=== PATIENT | female | born 1995 | race Caucasian/White ===

== ENCOUNTER 2023-10-13 07:21 | Emergency (ER) | payer BC, SELFPAY ==
--- OUTSIDE RECORDS SUMMARY | 2023-10-13 07:25 | XMS REPORT | Continuity of Care Document ---
Author Name Unknown Address [address] [place] [address] [facility] thconnect Address 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 Name Role Phone PCP, PATIENT DOES NOT HAVE A Primary Care Physic mara Unavailable [place] Patito SHEFFIELD Attending Clinician [phone] DEMARCUSPATITO REYES Attending Clinician Unavailab le Doctor Unassigned, Sims Attending Clinician U Gloria Ni MD Attending Clinician [phone] GLORIA RODRIGUEZ Attending Clinician Unavailable Mariaelena Alves MD Attending Clinician [phone] MARIAELENA ALVES Attending Clinician Unavailable JESSICA MCDANIELS Attending Clinician Unavailable Payers Payer Name Policy Type Policy Number Effective Date Expirati on Date Source Problems Condition Name Condition Details Condition Category Status Onset Date Resolution Date Last Treatment Date Treating Clinician Comments Source Well woman exam with routine gynecologi saud exam Well woman exam with routine gynecologi saud exam Disease Active 08-31 00:00: 00 [facility] Encounter for female control Encounter for female control Disease Active 08-31 00:00: 00 [facility] No known active problems No known active problems Disease [facility] Allergies, Adverse Reactions, Alerts Allergy Name Allergy Type Status Severity Reaction(s) Onset Date Inactive Date Treating Clinician Comments Source Venom-Ho khris Bee Drug Allergy Active Swelling 2015-04 0-04 00:00: 00 [facility] VENOM-HO KHRIS BEE DRUG INGREDI Active High Swelling 2015-04 004 00:00: 00 [facility] NO KNOWN ALLERGIE S Drug Class Active [facility] Social History Social Habit Start Date Stop Date Quantity Comments Source History SDOH Alcohol Frequency [facility] History SDOH Alcohol Std Drinks [facility] History SDOH Alcohol Binge [facility] Gender identity [facility] Alcoholic beverage intake 2022-10-13 00:00:00 2022-10-13 00:00:00 Ex-drinker (finding) [facility] Tobacco use and exposure 2022-10-13 00:00:00 2022-10-13 00:00:00 Smokeless tobacco non-user [facility] Exposure to SARS-CoV-2 (event) 2021-09-30 00:00:00 2021-10-10 08:00:00 Not sure [facility] Alcohol intake 2021-10-10 00:00:00 2021-10-10 00:00:00 Ex-drinker (finding) [facility] History of Social function 2020-08-26 00:00:00 2020-08-26 00:00:00 [facility] Alcohol Comment 2019-08-29 00:00:00 2019-08-29 00:00:00 Socially [facility] Sex Assigned At 1995 00:00:00 1995 00:00:00 [facility] Smoking Status Start Date Stop Date Source Never smoked tobacco [facility] Medications Ordered Medication Name Filled Medication Name Start Date Stop Date Current Medication? Ordering Clinician Indication Dosage Frequency Signature (SIG) Comments Components Source rashindsherri simms-doniestrad ioL-iron (AUROVELA FE 1.5/30, 28,) 1.5 mg-30 mcg (21)/75 mg (7) tablet 10-03 00:00: 00 Yes [id number] 1{tbl} Take 1 tablet by mouth in the morning. [facility] norethindro ne-e.estrad ioL-iron (AUROVELA FE 1.5/30, 28,) 1.5 mg-30 mcg (21)/75 mg (7) per tablet 10-13 00:00: 00 10-03 00:00 :00 No [id number] 1{tbl} Take 1 tablet by mouth in the morning. [facility] norethindro ne-e.estrad ioL-iron (AUROVELA FE 1.5/30, 28,) 1.5 mg-30 mcg (21)/75 mg (7) per tablet -23 00:00: 00 10-13 00:00 :00 No [id number] 1{tbl} Take 1 tablet by mouth in the morning. [facility] ioL-iron (AUROVELA FE 1.5/30, 28,) 1.5 mg-30 mcg (21)/75 mg (7) per tablet 3-23 00:00: 00 Yes [id number] 1{tbl} Take 1 tablet by mouth in the morning. [facility] [place] [facility]rad ioL-iron (AUROVELA FE 1.5/30, 28,) 1.5 mg-30 mcg (21)/75 mg (7) per tablet 04-24 00:00: 00 Yes [id number] 1{tbl} Take 1 tablet by mouth in the morning. [facility] AUROVELA FE 1.5/30, 28, 1.5 mg-30 mcg (21)/75 mg (7) per tablet -20 00:00: 00 04-24 00:00 :00 No [id number] 1{tbl} Take 1 tablet by mouth daily. [facility] Acet-Ethiny l Est (LOESTRIN 1.5/30, 21,) 1.5-30 mg-mcg per tablet 5-24 00:00: 00 07-23 00:00 :00 No [id number] 1{tbl} Take 1 tablet by mouth daily. [facility] naproxen 500 mg tablet 2019-04 00:00: 00 Yes [id number] 500mg Take 1 tablet by mouth SEE-INSTRU CTIONS. [facility] Vital Signs Vital Name Observation Time Observation Value Comments Shabbir peng Systolic blood pressure 2022-10-13 14:12:00 112 mm[Hg] [facility] Diastolic blood pressure 2022-10-13 14:12:00 75 mm[Hg] [facility] Heart rate 2022-10-13 14:12:00 85 /min [facility] Respiratory rate 2022-10-13 14:12:00 20 /min [facility] Body height 2022-10-13 14:12:00 167.6 cm [facility] Body weight 2022-10-13 14:12:00 84.959 kg [facility] BMI 2022-10-13 14:12:00 30.23 kg/m2 [facility] Oxygen saturation in Arterial blood by Pulse oximetry 2022-10-13 14:12:00 97 /min [facility] Systolic blood pressure 2021-10-10 13:23:00 107 mm[Hg] [facility] Diastolic blood pressure 2021-10-10 13:23:00 71 mm[Hg] [facility] Heart rate 2021-10-10 13:23:00 75 /min [facility] Body temperature 2021-10-10 13:23:00 36.33 Yeimi [facility] Body height 2021-10-10 13:23:00 167.6 cm [facility] Body weight 2021-10-10 13:23:00 71.351 kg [facility] BMI 2021-10-10 13:23:00 25.39 kg/m2 [facility] Systolic blood pressure 2021-07-23 14:52:00 111 mm[Hg] [facility] Diastolic blood pressure 2021-07-23 14:52:00 72 mm[Hg] [facility] Heart rate 2021-07-23 14:52:00 99 /min [facility] Body weight 2021-07-23 14:52:00 71.578 kg [facility] BMI 2021-07-23 14:52:00 26.26 kg/m2 [facility] Procedures Procedure Date / Time Performed Performing Clinicia n Source ASSIGNMENT OF BENEFITS 2022-10-13 13:39:53 Docto r Unassigned, Sims [facility] Encounters Start Date/Time End Date/Time Encounter Type Admission Type Attending [facility] Care Facility Care Department Encounter ID Source 2023-10-04 00:00:00 2023-10-04 14:26:51 Telephone [place] [facility] 1..840.114 350.1.13.10 4.2.7.2.686 [id number] [facility] 2022-10-13 09:00:00 2022-10-13 09:37:00 [facility] [id number] [facility] 2022-10-13 09:00:00 2022-10-13 09:37:00 Office Visit DemarcusPatito [facility] 1..840.114 350.1.13.10 4.2.7.2.686 [id number] [facility] 2022-10-13 00:00:00 2022-10-13 00:00:00 Orders Only Doctor Unassigned, Sims [facility] 1..840.114 350.1.13.10 4.2.7.2.686 [id number] [facility] 2022-09-22 00:00:00 2022-09-22 00:00:00 [facility] 1..840.114 350.1.13.10 4.2.7.2.686 [id number] [facility] 2022-08-25 00:00:00 2022-08-25 00:00:00 [facility] [place] 1.2.840.114 350.1.13.10 4.2.7.2.686 [id number] [facility] 2022-06-25 00:00:00 2022-06-25 00:00:00 Refill [place], Patito Sabillon [facility] 1.2.840.114 350.1.13.10 4.2.7.2.686 [id number] [facility] 2022-04-24 00:00:00 2022-04-24 00:00:00 Telephone Demarcus, Patito Sabillon [facility] 1.2.840.114 350.1.13.10 4.2.7.2.686 [id number] [facility] 2021-10-10 08:00:00 2021-10-10 08:57:55 Office Visit Vu, [facility] 1.2.840.114 350.1.13.10 4.2.7.2.686 [id number] [facility] 2021-10-10 08:00:00 2021-10-10 08:57:55 [id number] 2021-10-10 08:00:00 2021-10-10 08:57:55 Outpatient R VU [facility] [id number] [facility] 2021-10-10 08:00:00 2021-10-10 08:57:55 Outpatient R VU [facility] [id number] [facility] 2021-10-10 08:00:00 2021-10-10 08:57:55 Outpatient R VU [facility] [id number] [facility] 2021-10-10 08:00:00 2021-10-10 08:00:00 [facility] [id number] [facility] 2021-10-10 08:00:00 2021-10-10 08:00:00 Outpatient [facility] [id number] [facility] 2021-10-10 00:00:00 2021-10-10 00:00:00 Letter (Out) Doctor Unassigned, Sims [facility] 1.840.114 350.1.13.10 4.2.7.2.686 [id number] [facility] 2021-09-03 15:40:00 2021-09-03 15:40:00 Outpatient R DEMARCUS, PATITO [facility] [id number] [facility] 2021-09-03 15:40:00 2021-09-03 15:40:00 Outpatient R DEMARCUS, PATITO [facility] [id number] [facility] 2021-07-23 09:40:00 2021-07-23 10:02:42 Office Visit DemarcusPatito [place] [facility] 1.840.114 350.1.13.10 4.2.7.2.686 [id number] [facility] 2021-07-23 09:40:00 2021-07-23 10:02:42 Outpatient R DEMARCUS, PATITO [facility] [id number] [facility] 2021-07-23 09:40:00 2021-07-23 09:40:00 Outpatient R DEMARCUS, [facility] [id number] [facility] 2021-07-23 00:00:00 2021-07-23 00:00:00 Orders Only Doctor Unassigned, Sims [facility] ..114 350.1.13.10 4.2.7.2.686 [id number] [facility] 2020-08-30 00:00:00 2020-08-30 00:00:00 [facility] 1.2.840.114 350.1.13.10 4.2.7.2.686 [id number] [facility] 2020-08-26 09:24:52 2020-08-26 10:10:31 Office Visit Mariaelena Alves [facility] Profess[facility] nal Building 1.2.840.114 350.1.13.10 4.2.7.2.686 [id number] [facility] 2020-08-26 09:30:00 2020-08-26 09:30:00 Outpatient R MARIAELENA ALVES [facility] [id number] [facility] 2020-08-26 00:00:00 2020-08-26 00:00:00 Orders Only Doctor Unassigned, Sims [facility] 1.2.840.114 350.1.13.10 4.2.7.2.686 [id number] [facility] 2020-08-15 00:00:00 2020-08-15 00:00:00 Telephone Mariaelena Alves [facility] Building 1.2.840.114 350.1.13.10 4.2.7.2.686 [id number] [facility] 2020-07-17 00:00:00 2020-07-17 00:00:00 [facility] 1.2.840.114 350.1.13.10 4.2.7.2.686 [id number] 134 [id number] [facility] 2020-06-26 00:00:00 2020-06-26 00:00:00 [facility] 1.2.840.114 350.1.13.10 4.2.7.2.686 [id number] 134 [id number] [facility] 2020-06-14 00:00:00 2020-06-14 00:00:00 [facility] 1.2.840.114 350.1.13.10 4.2.7.2.686 [id number] 134 [id number] [facility] 2020-02-21 18:28:36 2020-02-21 23:59:00 Hospital Encounter Mariaelena Alves [facility] 1.2.840.114 350.1.13.10 4.2.7.2.686 [id number] [facility] 2020-02-21 00:00:00 2020-02-21 00:00:00 Outpatient R MARIAELENA ALVES [facility] [id number] [facility] 2020-02-21 00:00:00 2020-02-21 00:00:00 Orders Only Doctor Unassigned, Sims [facility] 1.2.840.114 350.1.13.10 4.2.7.2.686 [id number] [facility] 2020-02-14 14:00:00 2020-02-14 14:00:00 Outpatient R MARIAELENA ALVES [facility] [id number] [facility] 2020-02-14 09:25:50 2020-02-14 10:36:30 Office Visit Mariaelena Alves [facility] Building 1.2.840.114 350.1.13.10 4.2.7.2.686 [id number] [facility] 2020-02-13 09:15:00 2020-02-13 09:15:00 Outpatient R MARIAELENA ALVES [facility] [id number] [facility] 2020-02-06 10:00:00 2020-02-06 10:00:00 Outpatient R JESSICA MCDANIELS [facility] [id number] [facility] 2020-01-01 09:34:29 2020-01-01 10:29:17 Office Visit Mariaelena Alves [facility] Building 1.2.840.114 350.1.13.10 4.2.7.2.686 [id number] [facility] 2020-01-01 09:30:00 2020-01-01 09:30:00 Outpatient R MARIAELENA ALVES [facility] [id number] [facility] 2019-08-29 14:25:55 2019-08-29 15:24:39 Office Visit Mariaelena Alves [facility] Priyanka Loredo [facility] 1.2.840.114 350.1.13.10 4.2.7.2.686 [id number] 134 [id number] [facility] 2019-08-29 14:15:00 2019-08-29 14:15:00 Outpatient R MARIAELENA ALVES [facility] [id number] [facility] Notes Date/Time Note Provider Source 2023-10-04 14:24:17 [id number]:24:17F ormatting of this note might be different from the original.Called patient and identified by name and . 3 Month supply sent to pharmacy on file. Patient aware she will need appointment for further refills. She states no questions or concerns at this time.Hodan Nazario RN 10/04/2023 2:25 PM 53338-9Vdpseafzf encounter RexiLL1384-16-64L14:25:22Telephone encounter NoteTXT1.2.840.557434.1.13.104.2.7 .2.213398|[id number] for patient pxqp33304-4NeubTKIREMUDRSBZhzfuide d C-CDA narrative textUT[facility]M [facility] - [address] Ta[id number] 89YZISOYIQDESKADEMCHSDCY5551-85-27 T14:25:221.2.840.310320.1.72.3.15| 1.2.840.764963.1.13.104.2.7.2.7278 [id number] [facility] 2023-10-04 10:14:26 [id number]:14:26F ormatting of this note might be different from the original.Pt states she is in need for an Rx renewal but is unable to afford to come in for a WWE, wants to know what her options are.Please F/u 65761-1Mokuhexsy encounter JzxpLJ1872-67-46M01:17:36Telephone encounter NoteTXT1.2.840.424137.1.13.104.2.7 .2.040082|[id number] for patient vpal62571-8YezhUPORMKKMKSIOsnmxyfz d C-CDA narrative [id number] Hernandez[address] Ss[id number] 94FVASDYIBEFUGAFFJDZPEWL2644-83-32 T10:17:361.2.840.695206.1.72.3.15| 1.2.840.011079.1.13.104.2.7.2.7278 [id number] Nash Lang [facility]"
[2023-10-13] MEDS ORDERED: Levofloxacin 750mg IV 750 MG/150 ML BAG IV ONE (07:53)
[2023-10-13] MEDS ORDERED: LEVALBUTEROL 1.25 MG/3 ML NEB ONE (07:53)
[2023-10-13] MEDS ORDERED: NA CHLORIDE 0.9% 1,000 ML ONE (07:53)
[2023-10-13] MEDS ORDERED: IPRATROPIUM BROM 0.5MG/2.5ML ONE (07:53)
[2023-10-13 08:38] LABS: Absolute Eosinophils 0.2 K/uL (0-0.5); Absolute Lymphocytes (CBC) 3.4 K/uL (0.7-4.9); Absolute Monocytes 0.8 K/uL (0.1-1.3); Basophils % 0.4 % (0-1.3); Eosinophils % 1.5 % (0-4.4); Hematocrit 42.8 % (36.0-45.0); Lymphocytes % 26.9 % (15.3-44.8); MCH 27.8 pg (27.0-35.0); MCHC 32.6 g/dL (32.0-36.0); MCV 85.1 fL (80-100); MPV 7.7 fL (7.6-11.3); Monocytes % 6.8 % (3.3-12.3); Neutrophils % 64.4 % (41.7-73.7); Platelets 368 thou/uL (152-406); RBC Red Blood Cell Count 5.03 M/uL (3.86-4.86); Red Cell Distribution Width 13.5 % (12.1-15.2)
[2023-10-13 08:44] LABS: Specific Gravity < 1.005 (1.005-1.030)
[2023-10-13 08:46] LABS: Specific Gravity < 1.005 (1.005-1.030); Sqamous Epithelial <5 /HPF (None Seen); Urine Bacteria <20 /HPF (<20); Urine Bilirubin NEGATIVE (Negative); Urine Blood Negative (Negative); Urine Clarity Turbid (Clear); Urine Color Colorless (Yellow); Urine Culture Reflex Order NOT NEEDED; Urine Glucose NEGATIVE (Negative); Urine Ketones NEGATIVE (Negative); Urine Microscopic Reflex YN ORDER UMIC; Urine Nitrite NEGATIVE (Negative); Urine Protein NEGATIVE (Negative); Urine RBC <5 /HPF (None Seen); Urine Urobilinogen Normal (Normal); Urine WBC <5 /HPF (<5); Urine pH 6.5 (5.0-7.0)
[2023-10-13 08:59] LABS: Albumin 3.5 g/dL (3.4-5.0); Albumin/Globulin Ratio 0.9 (1.1-1.8); Anion Gap 7.3 mEq/L (5.0-15.0); Bilirubin Total 0.3 mg/dL (0.2-1.0); Globulin 3.9 g/dL (2.3-3.5); Potassium 3.3 mEq/L (3.5-5.1); Protein, Total 7.4 g/dL (6.4-8.2)
--- NOTE | 2023-10-13 09:15 | RAD REPORT ---
EXAM DESCRIPTION: CT - Thorax W/ Con - 10/13/2023 8:54 am CLINICAL HISTORY: Cough COMPARISON: None TECHNIQUE: Computed axial tomography of the chest was obtained. 100 cc Isovue 300 was administered i ntravenously. All CT scans are performed using dose optimization technique as appropriate and may include automated exposure control or mA/KV adjustment according to patient size. FINDINGS: A 4 millimeter right upper lobe nodule. 17 x 4 millimeter soft tissue structure bronchus intermedius. No mediastinal or hilar lymphadenopathy is seen. A pleural effusion is not present. A pericardial effusion is not seen. IMPRESSION: 17 x 4 millimeter soft tissue structure bronchus intermedius of uncertain etiology. If c linically indicated direct visualization may be helpful 4 millimeter right lung nodule *ow-risk patients: no routine follow-up required *high-risk patients: optional CT at 12 months
--- NOTE | 2023-10-13 09:15 | RAD REPORT ---
EXAM DESCRIPTION: Ibrahima Single View10/13/2023 8:03 am CLINICAL HISTORY: Cough COMPARISON: CT chest October 13, 2023 FINDINGS: 4 millimeter right upper lobe nodule better seen on CT chest same date. The remainder lungs appear clear of acute infiltrate. The heart is normal size
[2023-10-13] MEDS ORDERED: CLINDAMYCIN 900MG/D5W 900 MG/50 ML IVPB IV ONE (09:42)
--- NOTE | 2023-10-13 09:59 | ER ---
Nurse's Notes [facility] Name: Rosalva Ga Age: 28 yrs Sex: Female : 1995 Arrival Date: 10/13/2023 Time: 07:21 Bed 11 Private MD: Diagnosis: Dyspnea;Pneumonia, unspecified organism-17x 4 mm soft tissuestructure bronchus intermedius;Elevated white blood cell count Presentation: 10/12 07:51 Chief complaint: Patient states: Cough after aspirating food still lingers since seeing ll1 Dr. Gabriel last time. No fever. Coronavirus screen: Client denies travel out of the [place] in the last 14 days. Ebola Screen: Patient denies travel to an Ebola-affected area in the 21 days before illness onset. Initial Sepsis Screen: Does the patient meet any 2 criteria? No. Patient's initial sepsis screen is negative. Does the patient have a suspected source of infection? No. Patient's initial sepsis screen is negative. Risk Assessment: Do you want to hurt yourself or someone else? Patient reports no desire to harm self or others. Onset of symptoms was October 04, 2023. 07:51 Method Of Arrival: Ambulatory ll1 07:51 Acuity: AAMIR 3 ll1 Triage Assessment: 07:51 General: Appears uncomfortable, Behavior is calm, cooperative, appropriate for age. ll1 Respiratory: Reports cough that is pain with cough. Historical: - Allergies: 07:50 Prednisone; ll1 - PMHx: 07:50 Asthma; ll1 - PSHx: 07:50 wisdom teeth; ll1 - Immunization history:: Adult Immunizations up to date. - Infectious Disease History:: Denies. - Social history:: Smoking status: Patient denies any tobacco usage or history of. Screenin:38 [facility] ED Fall Risk Assessment (Adult) History of falling in the last 3 months, ph including since admission No falls in past 3 months (0 pts) Confusion or Disorientation No (0 pts) Intoxicated or Sedated No (0 pts) Impaired Gait No (0 pts) Mobility Assist Device Used No (0 pt) Altered Elimination No (0 pt) Score/Fall Risk Level 0 - 2 = Low Risk Oriented to surroundings, Maintained a safe environment, Hourly rounding (assess needs \T\ fall precautionary measures) done. Abuse screen: Denies threats or abuse. Denies injuries from another. Nutritional screening: No deficits noted. Tuberculosis screening: No symptoms or risk factors identified. Assessment: 08:00 General: Appears in no apparent distress. comfortable, Behavior is calm, cooperative, ph appropriate for age, Denies fever, chills. Pain: Complains of pain in with cough. Neuro: Level of Consciousness is awake, alert, obeys commands, Oriented to person, place, time, situation. Cardiovascular: Capillary refill < 3 seconds in bilateral fingers Patient's skin is warm and dry. Respiratory: Reports shortness of breath on exertion cough that is non-productive, persistent pain with cough Airway is patent Respiratory effort is even, unlabored, Respiratory pattern is regular, symmetrical. Derm: Skin is pink, warm \T\ dry. Musculoskeletal: Circulation, motion, and sensation intact. Range of motion: intact in all extremities. 13:35 Reassessment: Report called to [facility], awaiting EMS for transport. ph 14:52 Reassessment: Patient appears in no apparent distress at this time. Patient and/or ph family updated on plan of care and expected duration. Pain level reassessed. Patient is alert, oriented x 3, equal unlabored respirations, skin warm/dry/pink. [facility] at bedside, report given to EMT-P. pt transferred to [facility]. Vital Signs: 07:35 BP 122 / 76; Pulse 95; Resp 18; Temp 97.8; Pulse Ox 95% on R/A; Weight 88.45 kg; Height em1 5 ft. 6 in. ; Pain 7/10; 07:51 Weight 88.45 kg; Height 5 ft. 6 in. ; Pain 7/10; ll1 09:00 BP 119 / 78; Pulse 91; Resp 18; Temp 97.3; Pulse Ox 97% on R/A; ph 10:30 BP 128 / 78; Pulse 89; Resp 16; Pulse Ox 98% on R/A; ph 12:00 BP 112 / 69; Pulse 87; Resp 18; Temp 97.5; Pulse Ox 99% on R/A; ph 14:00 BP 108 / 72; Pulse 87; Resp 16; Pulse Ox 96% on R/A; ph 14:53 BP 115 / 78; Pulse 91; Resp 16; Temp 97.5; Pulse Ox 97% on R/A; ph 07:51 Body Mass Index 31.47 (88.45 kg, 167.64 cm) ll1 07:35 Pain Scale: Adult em1 07:51 Pain Scale: Adult ll1 ED Course: 07:20 Missed attempt(s): 22 gauge in right antecubital area. Bleeding controlled, band aid ph applied, catheter tip intact. 07:25 Patient arrived in ED. gm2 07:25 Initial lab(s) drawn, by me, sent to lab. Urine collected:. Inserted saline lock: 22 ph gauge in left antecubital area, using aseptic technique. Blood collected. 07:26 Watson Gabriel MD is Attending Physician. kenny 07:36 Arm band placed on Patient placed in an exam room, on a stretcher. ll1 07:45 Alison Whalen, RN is Primary Nurse. ph 07:52 Triage completed. ll1 08:04 Chest Single View XRAY In Process Unspecified. EDMS 08:41 PREGU Sent. ph 08:41 Urinalysis w/ reflexes Sent. ph 08:41 Blood Culture Adult (2) Sent. ph 08:41 Comprehensive Metabolic Panel Sent. ph 08:56 CT Chest W/ Con In Process Unspecified. EDMS 09:40 initiated a transfer with Rehan at the [facility]. eb 10:09 Patient has correct armband on for positive identification. Call light in reach. Side ph rails up X 1. Pulse ox on. NIBP on. Door closed. Noise minimized. Warm blanket given. Pillow given. 10:09 No provider procedures requiring assistance completed. ph 13:21 administrative approval given by Rehan Gutierrez Rn/ patient has been accepted to [facility] room 1818/ Dr. Willow Casanova has accepted the patient in transfer/ report to be called [phone]. 14:01 Patient transferred, IV remains in place. ph Administered Medications: 08:41 Drug: NS 0.9% IV 1000 ml IV at 1 bolus Per protocol; 1000 mL bolus Route: IV; Rate: 1 ph bolus; Site: left antecubital; 10:09 Follow up: Response: No adverse reaction; IV Status: Completed infusion; IV Intake: ph 1000ml 08:41 Drug: Levalbuterol Inhalation 2.5 mg Inhalation once Route: Inhalation; ph 10:09 Follow up: Response: No adverse reaction ph 08:41 Drug: Ipratropium Inhalation Aerosol 0.5 mg Inhalation once Route: Inhalation; ph 10:09 Follow up: Response: No adverse reaction ph 08:41 Drug: levofloxacin IVPB 750 mg 150 ml IVPB once over 90 mins Volume: 150 ml; Route: ph IVPB; Infused Over: 90 mins; Site: left antecubital; 10:08 Follow up: Response: No adverse reaction; IV Status: Completed infusion ph 09:50 Drug: Clindamycin IVPB 900 mg IVPB once over 30 mins; (mix in 50 mL) Route: IVPB; ph Infused Over: 30 mins; Site: left antecubital; 10:20 Follow up: Response: No adverse reaction; IV Status: Completed infusion ph Medication: 10:09 VIS not applicable for this client. ph Intake: 10:09 IV: 1000ml; Total: 1000ml. ph Outcome: 09:57 ER care complete, transfer ordered by MD. cox 14:53 Transferred by [facility] to [facility], Transfer form ph completed. X-rays sent w/ patient. 14:53 Condition: stable 14:53 Instructed on the need for transfer, 14:54 Patient left the ED. ph Signatures: Dispatcher [employer] EDWatson Enriquez MD MD cha Martinez, Eric em1 Alison Whalen, RN RN ph Brianna Johnson Lynsay, RN RN ll1 Caroline Estrella gm2 Corrections: (The following items were deleted from the chart) 07:51 07:50 Social history: Smoking status: unknown [place] [id number] 14:01 10:09 Patient did not have IV access during this emergency room visit. ph ph
--- NOTE | 2023-10-13 09:59 | EDPHYS ---
Physician Documentation [facility] Name: Rosalva Ga Age: 28 yrs Sex: Female : 1995 Arrival Date: 10/13/2023 Time: 07:21 Bed 11 Private MD: ED Physician Watson Gabriel HPI: 10/12 09:41 This 28 yrs old Female presents to ER via Ambulatory with complaints of kenny Cough, SWALLOWED ALMOND. 09:41 The patient or guardian reports cough, difficulty breathing. kenny Historical: - Allergies: 07:50 Prednisone; ll1 - PMHx: 07:50 Asthma; ll1 - PSHx: 07:50 wisdom teeth; ll1 - Immunization history:: Adult Immunizations up to date. - Infectious Disease History:: Denies. - Social history:: Smoking status: Patient denies any tobacco usage or history of. ROS: 09:51 Constitutional: Negative for fever, chills, and weight loss, Eyes: Negative for injury, kenny pain, redness, and discharge, ENT: Negative for injury, pain, and discharge, Neck: Negative for injury, pain, and swelling, Cardiovascular: Negative for chest pain, palpitations, and edema, Abdomen/GI: Negative for abdominal pain, nausea, vomiting, diarrhea, and constipation, Back: Negative for injury and pain, : Negative for injury, bleeding, discharge, and swelling, MS/Extremity: Negative for injury and deformity, Skin: Negative for injury, rash, and discoloration, Neuro: Negative for headache, weakness, numbness, tingling, and seizure, Psych: Negative for depression, anxiety, suicide ideation, homicidal ideation, and hallucinations, Allergy/Immunology: Negative for hives, rash, and allergies, Endocrine: Negative for neck swelling, polydipsia, polyuria, polyphagia, and marked weight changes, Hematologic/Lymphatic: Negative for swollen nodes, abnormal bleeding, and unusual bruising, 09:51 Respiratory: Positive for cough, shortness of breath, at rest. Exam: 09:51 Constitutional: This is a well developed, well nourished patient who is awake, alert, kenny and in no acute distress. Head/Face: Normocephalic, atraumatic. Eyes: Pupils equal round and reactive to light, extra-ocular motions intact. Lids and lashes normal. Conjunctiva and sclera are non-icteric and not injected. Cornea within normal limits. Periorbital areas with no swelling, redness, or edema. ENT: Nares patent. No nasal discharge, no septal abnormalities noted. Tympanic membranes are normal and external auditory canals are clear. Oropharynx with no redness, swelling, or masses, exudates, or evidence of obstruction, uvula midline. Mucous membranes moist. Neck: Trachea midline, no thyromegaly or masses palpated, and no cervical lymphadenopathy. Supple, full range of motion without nuchal rigidity, or vertebral point tenderness. No Meningismus. Chest/axilla: Normal chest wall appearance and motion. Nontender with no deformity. No lesions are appreciated. Cardiovascular: Regular rate and rhythm with a normal S1 and S2. No gallops, murmurs, or rubs. Normal PMI, no JVD. No pulse deficits. Abdomen/GI: Soft, non-tender, with normal bowel sounds. No distension or tympany. No guarding or rebound. No evidence of tenderness throughout. Back: No spinal tenderness. No costovertebral tenderness. Full range of motion. Skin: Warm, dry with normal turgor. Normal color with no rashes, no lesions, and no evidence of cellulitis. MS/ Extremity: Pulses equal, no cyanosis. Neurovascular intact. Full, normal range of motion. Neuro: Awake and alert, GCS 15, oriented to person, place, time, and situation. Cranial nerves II-XII grossly intact. Motor strength 5/5 in all extremities. Sensory grossly intact. Cerebellar exam normal. Normal gait. 09:51 Respiratory: the patient does not display signs of respiratory distress, Respirations: normal, no acute changes, Breath sounds: bronchial sounds, that are mild, decreased breath sounds, that are moderate, are heard in the right upper lobe, right posterior upper lobe and right posterior middle lobe, Respiratory rate: 18 09:51 Musculoskeletal/extremity: DVT Exam: No signs of deep vein thrombosis. no pain, no swelling, no tenderness, negative Homans' sign noted on exam, no appreciated bluish discoloration, no erythema, no increased warmth, Vital Signs: 07:35 BP 122 / 76; Pulse 95; Resp 18; Temp 97.8; Pulse Ox 95% on R/A; Weight 88.45 kg; Height em1 5 ft. 6 in. ; Pain 7/10; 07:51 Weight 88.45 kg; Height 5 ft. 6 in. ; Pain 7/10; ll1 09:00 BP 119 / 78; Pulse 91; Resp 18; Temp 97.3; Pulse Ox 97% on R/A; ph 10:30 BP 128 / 78; Pulse 89; Resp 16; Pulse Ox 98% on R/A; ph 12:00 BP 112 / 69; Pulse 87; Resp 18; Temp 97.5; Pulse Ox 99% on R/A; ph 14:00 BP 108 / 72; Pulse 87; Resp 16; Pulse Ox 96% on R/A; ph 14:53 BP 115 / 78; Pulse 91; Resp 16; Temp 97.5; Pulse Ox 97% on R/A; ph 07:51 Body Mass Index 31.47 (88.45 kg, 167.64 cm) ll1 07:35 Pain Scale: Adult em1 07:51 Pain Scale: Adult ll1 MDM: 07:35 Patient medically screened. [facility] 09:52 Differential Diagnosis: Obstructed Airway Bronchitis Influenza Upper Respiratory kenny Infection Sinusitis Pharyngitis Asthma Exacerbation Viral Syndrome Pneumonia. Data reviewed: vital signs, nurses notes, lab test result(s), radiologic studies, CT scan, plain films. Consideration of Admission/Observation Escalation of care including admission/observation considered. I considered the following discharge prescriptions or medication management in the emergency department Medications were administered in the Emergency Department. See MAR. Independent interpretation of the following test(s) in the Emergency Department X-Ray: My interpretation is cxr, ct chest. Test considered but Not performed: MRI: no mri chest. Historians other than the Patient: Spouse/Significant Other: spouse well informed. Care significantly affected by the following chronic conditions: asthma. Counseling: I had a detailed discussion with the patient and/or guardian regarding the historical points, exam findings, and any diagnostic results supporting the discharge/admit diagnosis, lab results, radiology results, the need to transfer to another facility, for higher level of care, [facility] does not immediately have the required specialist, dr aravind allen. 10/12 07:28 Order name: CBC with Diff; Complete Time: 09:07 kenny 10/12 07:28 Order name: Comprehensive Metabolic Panel; Complete Time: : [facility] 10/12 07:28 Order name: Blood Culture Adult (2) [facility] 10/12 07:28 Order name: Urinalysis w/ reflexes; Complete Time: 09:07 [facility] 10/12 07:28 Order name: PREGU; Complete Time: 09:07 [facility] 10/12 07:28 Order name: Chest Single View XRAY; Complete Time: 09:21 [facility] 10/12 07:28 Order name: CT Chest W/ Con; Complete Time: 09:21 kenny Administered Medications: 08:41 Drug: NS 0.9% IV 1000 ml IV at 1 bolus Per protocol; 1000 mL bolus Route: IV; Rate: 1 ph bolus; Site: left antecubital; 10:09 Follow up: Response: No adverse reaction; IV Status: Completed infusion; IV Intake: ph 1000ml 08:41 Drug: Levalbuterol Inhalation 2.5 mg Inhalation once Route: Inhalation; ph 10:09 Follow up: Response: No adverse reaction ph 08:41 Drug: Ipratropium Inhalation Aerosol 0.5 mg Inhalation once Route: Inhalation; ph 10:09 Follow up: Response: No adverse reaction ph 08:41 Drug: levofloxacin IVPB 750 mg 150 ml IVPB once over 90 mins Volume: 150 ml; Route: ph IVPB; Infused Over: 90 mins; Site: left antecubital; 10:08 Follow up: Response: No adverse reaction; IV Status: Completed infusion ph 09:50 Drug: Clindamycin IVPB 900 mg IVPB once over 30 mins; (mix in 50 mL) Route: IVPB; ph Infused Over: 30 mins; Site: left antecubital; 10:20 Follow up: Response: No adverse reaction; IV Status: Completed infusion ph Disposition Summary: 10/13/23 09:57 Transfer Ordered Notes: Transfer Location: [facility] kenny Reason: Higher level of care kenny Condition: Stable kenny Problem: new kenny Symptoms: are unchanged kenny Accepting Physician: to [facility](10/13/23 14:54) ph Diagnosis - Dyspnea kenny - Pneumonia, unspecified organism - 17x 4 mm soft tissuestructure bronchus intermediuscha - Elevated white blood cell count kenny Forms: - Medication Reconciliation Form kenny - SBAR form kenny Signatures: Dispatcher [employer] Watson Gomez MD MD cha Hall, Patricia, RN RN ph Jesika Jackman RN RN ll1 Corrections: (The following items were deleted from the chart) 07: 07:29 CBC+H.LAB.BRZ ordered. EDMS EDMS 07: 07:29 COMPREHENSIVE METABOLIC PANEL+C.LAB.BRZ ordered. EDMS EDMS 07: 07:29 BLOOD CULTURE*+BA.LAB.BRZ ordered. EDMS EDMS 07: 07:29 Sputum Culture+BA.LAB.BRZ ordered. EDMS EDMS 07: 07:29 Urinalysis+U.LAB.BRZ ordered. EDMS EDMS 07: 07:29 Test, Urine+UC.LAB.BRZ ordered. EDMS EDMS 07: 07:29 Chest Single View+RAD.RAD.BRZ ordered. EDMS EDMS 07: 07:29 Thorax W/ Con+CT.RAD.BRZ ordered. EDMS EDMS 07:51 07:50 Social history: Smoking status: unknown 1 ll1 14:54 09:57 to [facility] kenny ph
[2023-10-13 17:00] VITALS: BP 115/78; TEMP 97.5; O2SAT 97
== END 2023-10-13 14:54 | disposition short-term general hospital (02) ==
LOC: ER 07:21
DX: J18.9 Pneumonia, unspecified organism (principal); D72.829 Elevated white blood cell count, unspecified
CPT/HCPCS: 36415; 71045; 71260; 80053; 81001; 81025; 85025; 87040; 96365; 99285; J7030; J7614; J7644; Q9967